=== PATIENT | male | born 1955 | race Caucasian/White ===

== ENCOUNTER 2019-07-11 03:34 | Outpatient (CLI) | payer OTHER, SELFPAY ==
[2019-07-11 10:51] LABS: Anion Gap 7.3 mmol/L (3-11); BUN 23 mg/dL (7-18); CO2 31.7 mmol/L (21.0-32.0); CREATININE 1.12 mg/dL (0.70-1.30); Calcium 8.9 mg/dL (8.5-10.1); Chloride 101 mmol/L (98-107); Glucose 97 mg/dL (70-100); Potassium 3.7 mmol/L (3.5-5.1); Sodium 140 mmol/L (136-145)
[2019-07-11 11:15] LABS: Calculated LDL 48 mg/dL; Cholesterol 106 mg/dL (50-200); HDL Cholesterol 29 mg/dL (40-60); Triglyceride 146 mg/dL (30-150)
== END 2019-07-11 03:54 ==
PROVIDERS: PCP Family Medicine; Visit Provider Family Medicine
DX: Z00.00 Encounter for general adult medical examination without abnormal findings (principal); E66.3 Overweight
CPT/HCPCS: 36415; 80048; 80061

== ENCOUNTER 2020-07-14 21:20 | Outpatient (REF) | payer OTHER, SELFPAY ==
[2020-07-14 21:47] LABS: Potassium 3.5 mmol/L (3.5-5.1)
== END 2020-07-14 21:40 ==
LOC: LBN 21:20
PROVIDERS: PCP Family Medicine; Visit Provider Family Medicine
DX: I10 Essential (primary) hypertension (principal)
CPT/HCPCS: 82565; 84132

== ENCOUNTER 2020-07-15 01:42 | Outpatient (CLI) | payer OTHER, SELFPAY ==
--- NOTE | 2020-07-15 11:07 | DI.RAD_ITS ---
EXAM: XR KNEE LT 3V AP,LAT,LATRICE CLINICAL HISTORY: knee pain endy,WEAKNESS BOTH LOWER EXTREMITIES,M25.561,[id number]. TECHNIQUE: 2D digital imaging was performed. COMPARISON: No exams were available for comparison FINDINGS: BONES: No acute fracture is present. No bony destructive lesion is seen. There is a lucency seen in the articular surface of the medial femoral condyle which may represent an osteochondral injury. The re is an enthesophyte at the superior patella. JOINTS: The knee is normally aligned. No joint effusion is seen. Drqa-co-doxnwund degenerative change s are seen in the left knee characterized by joint space narrowing and periarticular spurring. SOFT TISSUE: Normal. IMPRESSION: Degenerative changes of the left knee. DATA REPOSITORY: RADIATION DOSE DELIVERED:
--- NOTE | 2020-07-15 11:15 | DI.RAD_ITS ---
EXAM: XR KNEE RT 3V AP,LAT,LATRICE CLINICAL HISTORY: weakness in knees,BILAT KNEE PAIN,M25.561,M25.562. TECHNIQUE: 2D digital imaging was performed. COMPARISON: CR XR KNEE LT 3V AP,LAT,LATRICE from 07/15/2020 FINDINGS: BONES: No acute fracture is present. No bony destructive lesion is seen. JOINTS: The knee is normally aligned. No joint effusion is seen. Mild degenerative changes are seen i n the right knee characterized by joint space narrowing and periarticular spurring. The findings are most marked in the medial femoral tibial joint space. SOFT TISSUE: Normal. IMPRESSION: Degenerative changes of the right knee. DATA REPOSITORY: RADIATION DOSE DELIVERED:
== END 2020-07-15 02:02 ==
PROVIDERS: PCP Family Medicine; Visit Provider Family Medicine
DX: M17.0 Bilateral primary osteoarthritis of knee (principal)
CPT/HCPCS: 73562

== ENCOUNTER 2021-01-13 09:00 | Emergency (ER) | payer OTHER, SELFPAY ==
[2021-01-13] VITALS (41 sets, daily range): BP systolic 110–172; BP diastolic 59–87; PULSE 50–82; RESP 13–24; TEMP 36.6; O2SAT 95–98
--- NOTE | 2021-01-13 09:00 | RT.EKG_ITS ---
APPROVED REPORT Exam: Resting ECG Patient Location: E HR:68 bpm ECG Measurements Heart Rate 68 AXIS KS 151 P 34 QRSd 109 QRS -29 QT 411 T 16 QTc 436 Conclusion Sinus rhythm...normal P axis, V-rate 60- 99
--- NOTE | 2021-01-13 09:30 | RT.EKG_ITS ---
APPROVED REPORT Exam: Resting ECG Patient Location: E HR:51 bpm ECG Measurements Heart Rate 51 AXIS SC 145 P 19 QRSd 115 QRS -27 QT 457 T 2 QTc 423 Conclusion Sinus bradycardia...rate< 60 Nonspecific intraventricular conduction delay...QRSd >115mS, not LBBB/RBBB
--- NOTE | 2021-01-13 09:43 | ED.GENADUL_ITS ---
Discharge Plan Disposition Patient Disposition: HOME Condition: Good Discharge Details Clinical Impression: Rash, Chest pain Primary Care Provider: Christian Orr ED Provider: Lissa Astorga Home Meds and New Rx's Prescriptions: No Action losartan 100 mg tablet 100 mg PO DAILY Qty: 90 RF: 3 atorvastatin 40 mg tablet 40 mg PO DAILY Qty: 90 RF: 3 atenolol-chlorthalidone 100-25 mg tablet 1 tab PO DAILY Qty: 90 RF: 3 Discharge Instructions Instructions: Chest Pain (ED), Acute Rash (ED), Pityriasis rosea (ED) Additional Instructions: Please follow-up with your primary care physician tomorrow for reevaluation Return earlier should you have worsening or more persistent chest pain, norman rtness of breath, or with any new or progressing symptoms Your rash is likely self-limited and will resolve on, if it is itchy you may take Benadryl Discharge Data Discharge Date/Time-TO BE ENTERED AT DEPARTURE: 01/13/21 13:29 Medical Decision Making Patient appears quite well, he does not have chest pain during my evaluation and his EKG is reassuring, he had negative troponins and to negative EKGs for acute pathology during his stay 3 and I did consider his risk for coronary artery disease however given his presentation in conjunction with this rash have lower suspicion for cardiac etiology We talked about admission versus discharge home at this time patient feels comfortable discharge home and would like to follow-up with his primary care physician, will set up appointment for the acute outpatient reevaluation patient will return immediately should he have persistent or worsening chest pain, or with any new or concerning symptoms. Patient was fully alert, oriented, of decisional capacity. Evaluation today He has no pleuritic pain, hypoxia, or factors aside from a history of pulmonary embolism although this was considered Notable herald patch with papular rash surrounding Patient is asymptomatic eventually with a rash at this time Suspicion for angina. No evidence of ST elevation [place] on EKG Patient symptoms are nonexertional in nature currently have any exertional symptoms, he is not having nausea, diaphoresis, he does not smoke tobacco although he does have a strong family history of coronary artery disease and will need outpatient stress test EKG was reviewed by me and read by my attending physician, Dr. Marquez, please see his interpretation Patient is discharged home in stable condition, blood pressure is markedly elevated, instructed to have this rechecked by primary care physician in the outpatient setting Differential Diagnosis Differential Diagnosis: Pityriasis rosea, angina, ST elevation [place], dermatitis Medical Records Medical records reviewed: Yes I reviewed the patient's medical records. Lab Data Lab results reviewed: Yes I reviewed the patient's lab results. ECG Data Prior ECG tracings: available for review HPI 65-year-old gentleman with history of hyperlipidemia, hypertension, morbid o besity presents with report of generalized malaise since Monday followed by some intermittent chest pain starting Monday, past 3 days. He denies any exertional component. He denies nausea, vomiting, shortness of breath, diarrhea, blood in stool, sick contacts, travel, calf pain or swelling. He status post his first meningitis vaccine approximately 3 weeks ago. This morning he awoke and noticed a rash largely on his trunk that spread his extremities. He is asymptomatic at this rash. He denies any history of IV drug abuse or immunocompromise state. He denies any known sick contact. He has not attempted any [id number]-jma-[id number] medications.. Denies family history of early cardiac disease. General Date/Time Provider Initiated Documentation: 01/13/21 09:00 . Related Data Home Medications Medication Instructions Recorded Confirmed atenolol 100 mg-chlorthalidone 25 1 tab PO DAILY #90 tab 07/14/20 01/13/21 mg tablet atorvastatin 40 mg tablet 40 mg PO DAILY #90 tab 07/14/20 01/13/21 losartan 100 mg tablet 100 mg PO DAILY #90 tab 07/14/20 01/13/21 Previous Rx's Medication Instructions Recorded atenolol 100 mg-chlorthalidone 25 1 tab PO DAILY #90 tab 07/14/20 mg tablet atorvastatin 40 mg tablet 40 mg PO DAILY #90 tab 07/14/20 losartan 100 mg tablet 100 mg PO DAILY #90 tab 07/14/20 Allergies Allergy/AdvReac Type Severity Reaction Status Date / Time amlodipine AdvReac Intermediate SWELLING Verified 01/13/21 09:15 IN ANKLES lisinopril AdvReac Intermediate COUGH Verified 01/13/21 09:15 iv contrast Allergy Severe HIVES, Uncoded 01/13/21 09:15 ITCHING General Stated Complaint: Chest Pain MORA: 2 Review of Systems Narrative: Review of systems negative times 7 aside from where indicated in HPI [facility] Medical History (Updated 04/14/21 @ 13:10 by SABRINA Patino) Class 3 severe obesity due to excess calories with serious comorbidity and body mass index (BMI) of 40.0 to 44.9 in adult Essential hypertension Integumentary disorder Skin lesions Mixed hyperlipidemia Family History (Updated 07/15/20 @ 14:26 by Thuy Bolanos) Mother , 80 Hypertension Hyperlipidemia Ovarian cancer Father , 85 Diabetes Heart disease Hyperlipidemia Hypertension Sister Diabetes Hypertension Heart disease Hyperlipidemia Brother Diabetes Hypertension Heart disease Hyperlipidemia Brother Hyperlipidemia Hypertension Son Asthma Social History (Updated 07/15/20 @ 14:26 by Thuy Bolanos) Smoking/Tobacco Use Status: Former Tobacco Use Tobacco: How many years used: 10 Second Hand Exposure: Yes Smoking risk assessment performed?: Yes Alcohol Intake: current Alcohol Intake frequency: holidays/special occasions only Drug use: Never Substance use type: does not use Caregiver/Support person: No Household members: spouse Housing: house Communication Needs: None Do you need help understanding health information?: Never Pets and animals: No Sexually active: Yes Do you think of yourself as: straight/heterosexual What is your relationship status?: How often do you talk on the phone with friends or family?: once per week How often do you get together with friends or relatives?: three or more times per week Do you belong to any clubs or organized social groups?: no Panel score (0-1 are the most socially isolated patients): 2 What type of physical activity do you participate in: walking Duration: 15-30 minutes/day Frequency: 3-4 times per week Stephanie/Quaker: Moravian Special stephanie needs: No Seatbelt use: always Drive intox or ride w/intox special education bus driver: No Exam Const General: cooperative and comfortable Eyes Pupils: PERRL Neck Other: No meningismus Chest Chest: normal inspection of the chest Resp Effort & Inspection: normal respiratory effort Auscultation: clear to auscultation bilaterally Cardio Rate: regular rate Rhythm: regular rhythm GI Other: No abdominal tenderness appreciated Skin Other: Generalized papular rash that easily blanches, no petechiae or purpura Neuro General: patient alert and patient oriented x3 Extrem Other: No calf tenderness or swelling appreciated Psych Appearance: well kempt Course Vital Signs Vital signs: Vital Signs Temperature 36.6 C 01/13/21 09:09 Pulse 68 01/13/21 09:09 Respiratory Rate 21 01/13/21 09:09 Blood Pressure 172/84 H 01/13/21 09:09 Pulse Oximetry 98 01/13/21 09:09 Temperature 36.6 C 01/13/21 09:09 Temperature Source Skin 01/13/21 09:09 Pulse 68 01/13/21 09:09 Respiratory Rate 20 01/13/21 09:16 Respiratory Effort Non-Labored 01/13/21 09:16 Blood Pressure 172/84 H 01/13/21 09:09 Blood Pressure Position Supine 01/13/21 09:09 Pulse Oximetry 98 01/13/21 09:09 Oxygen Delivery Method Room Air 01/13/21 09:09 Oxygen Flow Rate 0 01/13/21 09:09 Pain Level 2 01/13/21 09:09
[2021-01-13 09:50] LABS: Abs Immature Grans 0.03 10^3/uL (0.0-0.06); Absolute Basophil Count 0.04 10^3/uL (0.0-0.2); Absolute Eosinophil Count 0.02 10^3/uL (0.0-0.7); Absolute Lymphocyte Count 1.52 10^3/uL (1.2-3.4); Absolute Monocyte Count 0.57 10^3/uL (0.1-0.8); Basophils % 0.5; Eosinophils % 0.2; HGB 16.5 g/dL (13.5-17.5); Immature Grans % 0.3; Lymphocytes % 17.7; MCH 31.4 pg (27.0-33.0); MCHC 35.1 % (32.0-36.0); MCV 89.4 fL (80-95); MPV 10.5 fL (8.0-11.0); Monocytes % 6.6; Neutrophils % 74.7; Nucleated RBC 0 %; Platelet Count 292 10^3/uL (130-400); RBC 5.26 10^6/uL (4.36-5.78); RDW 12.4 % (11.8-14.1); RDW-SD 40.8 fL; WBC 8.58 10^3/uL (4.4-10.8)
--- NOTE | 2021-01-13 09:56 | DI.RAD_ITS ---
EXAM: XR CHEST 2V PA LATERAL CLINICAL HISTORY: chest pain. TECHNIQUE: 2D digital imaging was performed. COMPARISON: No exams were available for comparison FINDINGS: Heart size is normal. The mediastinum is not widened. Lungs are clear. No infiltrates nor pleural effusions. Chest leads in place. Density upper right lung region appears to be coming off of the anterior aspec t of the 1st rib. This measures 12 x 10 millimeters. IMPRESSION: No acute pulmonary findings. DATA REPOSITORY: RADIATION DOSE DELIVERED:
[2021-01-13 09:57] LABS: ESR 26 mm//hr (0-20)
[2021-01-13 10:00] LABS: C-Reactive Protein 0.09 mg/dL (0.0-0.3)
[2021-01-13 10:09] LABS: ALT 37 U/L (16-63); AST 20 U/L (15-37); Alkaline Phosphatase 53 U/L (46-116); Anion Gap 8.6 mmol/L (3-11); BUN 14 mg/dL (7-18); Bilirubin, Total 0.9 mg/dL (0.2-1.0); CO2 29.4 mmol/L (21.0-32.0); CREATININE 1.2 mg/dL (0.70-1.30); Calcium 9.4 mg/dL (8.5-10.1); Chloride 101 mmol/L (98-107); Glucose 122 mg/dL (74-106); Lipase 98 U/L (73-393); Potassium 3.5 mmol/L (3.5-5.1); Sodium 139 mmol/L (136-145); Total Protein 8.2 g/dL (6.4-8.2); Troponin I < 0.05 ng/mL (<0.06)
[2021-01-13 13:11] LABS: Troponin I < 0.05 ng/mL (<0.06)
--- NOTE | 2021-01-13 14:36 | NUR.NOTE ---
Nursing Note: Faxed referral 01/13/21 MG
[2021-01-14 11:26] LABS: Lyme Ab w Rflx to Lyme Confirm Negative (Negative)
[2021-01-15 01:44] LABS: Anaplasma phagocytophilum Negative (Negative); B. miyamotoi PCR Negative (Negative); Babesia divergens/MO-1 Negative (Negative); Babesia duncani Negative (Negative); Babesia microti Negative (Negative); Ehrlichia chaffeensis Negative (Negative); Ehrlichia ewingii/canis Negative (Negative); Ehrlichia muris eauclairensis Negative (Negative)
== END 2021-01-13 13:29 | disposition home or self-care (01) ==
PROVIDERS: Emergency Provider Physician Assistant; PCP Family Medicine
DX: R21 Rash and other nonspecific skin eruption (principal); R07.89 Other chest pain; R53.81 Other malaise
CPT/HCPCS: 36415; 80053; 83690; 85652; 87798; 93005; 99284; 71046; 84484; 85025; 86140; 86618; 93010; 99285

== ENCOUNTER 2021-01-14 07:37 | Outpatient (CLI) | payer OTHER, SELFPAY ==
[2021-01-15 01:15] LABS: COVID-19 RT-PCR UVMMC Result Negative (Negative)
== END 2021-01-14 07:38 | disposition home or self-care (01) ==
PROVIDERS: PCP Family Medicine; Visit Provider Nurse Practitioner Family
DX: Z20.822 Contact with and (suspected) exposure to COVID-19 (principal)
CPT/HCPCS: U0003

== ENCOUNTER 2021-02-03 10:11 | Outpatient (CLI) | payer OTHER, SELFPAY ==
--- NOTE | 2021-02-03 10:00 | RT.EKG_ITS ---
APPROVED REPORT Exam: Resting ECG Reason for Exam: Chest pain Patient Location: O HR:60 bpm ECG Measurements Heart Rate 60 AXIS AK 138 P 36 QRSd 104 QRS -28 QT 454 T -12 QTc 454 Conclusion Sinus rhythm...normal P axis, V-rate 60- 99
== END 2021-02-03 10:12 | disposition home or self-care (01) ==
LOC: DI.CM 10:12
PROVIDERS: PCP Family Medicine; Visit Provider Family Medicine
DX: R07.9 Chest pain, unspecified (principal)
CPT/HCPCS: 93010

== ENCOUNTER 2021-07-20 08:48 | Outpatient (CLI) | payer OTHER, SELFPAY ==
[2021-07-20 12:39] LABS: Anion Gap 8.9 mmol/L (3-11); BUN 12 mg/dL (7-18); CO2 30.1 mmol/L (21.0-32.0); CREATININE 1.1 mg/dL (0.70-1.30); Calcium 8.9 mg/dL (8.5-10.1); Calculated LDL 50 mg/dL (<100); Chloride 103 mmol/L (98-107); Cholesterol 111 mg/dL (<200); Glucose 110 mg/dL (74-106); HDL Cholesterol 33 mg/dL (40-60); Potassium 3.8 mmol/L (3.5-5.1); Sodium 142 mmol/L (136-145); Triglyceride 141 mg/dL (<150)
[2021-07-20 12:58] LABS: Hemoglobin A1C 5.7 % (<5.7)
== END 2021-07-20 08:49 | disposition home or self-care (01) ==
LOC: LOS 08:49
PROVIDERS: PCP Family Medicine; Visit Provider Family Medicine
DX: E78.5 Hyperlipidemia, unspecified (principal); E87.1 Hypo-osmolality and hyponatremia; R73.9 Hyperglycemia, unspecified
CPT/HCPCS: 36415; 80048; 80061; 83036

== ENCOUNTER 2022-07-21 08:53 | Outpatient (CLI) | payer OTHER, SELFPAY ==
[2022-07-21 12:49] LABS: Hemoglobin A1C 5.9 % (<5.7)
[2022-07-21 12:51] LABS: CREATININE 1.2 mg/dL (0.70-1.30); Calculated LDL 57 mg/dL (<100); Cholesterol 114 mg/dL (<200); Estimated GFR 67.53 (mL/min/1.73m2); HDL Cholesterol 33 mg/dL (40-60); Potassium 3.5 mmol/L (3.5-5.1); Triglyceride 123 mg/dL (<150)
== END 2022-07-21 08:54 | disposition home or self-care (01) ==
LOC: LOS 08:53
PROVIDERS: PCP Family Medicine; Referring Provider Family Medicine; Visit Provider Family Medicine
DX: I10 Essential (primary) hypertension (principal); R73.9 Hyperglycemia, unspecified
CPT/HCPCS: 36415; 80061; 82565; 83036; 84132

== ENCOUNTER 2023-07-25 09:55 | Outpatient (CLI) | payer MEDICARE, SELFPAY ==
[2023-07-25 12:49] LABS: HCT 45.3 % (40.0-50.0); HGB 15.6 g/dL (13.5-17.5); MCH 31.3 pg (27.0-33.0); MCHC 34.4 % (32.0-36.0); MCV 91 fL (80-95); MPV 11.2 fL (8.0-11.0); Platelet Count 226 10^3/uL (130-400); RBC 4.98 10^6/uL (4.36-5.78); RDW 12.9 % (11.8-14.1); RDW-SD 42.6 fL; WBC 7.08 10^3/uL (4.4-10.8)
[2023-07-25 13:07] LABS: ALT 39 U/L (16-63); AST 19 U/L (15-37); Albumin 3.9 g/dL (3.4-5.0); Alkaline Phosphatase 50 U/L (46-116); Anion Gap 9.8 mmol/L (3-11); BUN 11 mg/dL (7-18); CO2 29.2 mmol/L (21.0-32.0); CREATININE 1.1 mg/dL (0.70-1.30); Calcium 9.6 mg/dL (8.5-10.1); Calculated LDL 27 mg/dL (<100); Chloride 103 mmol/L (98-107); Cholesterol 75 mg/dL (<200); Glucose 110 mg/dL (74-106); HDL Cholesterol 32 mg/dL (40-60); Potassium 3.5 mmol/L (3.5-5.1); Sodium 142 mmol/L (136-145); Total Protein 7.9 g/dL (6.4-8.2); Triglyceride 81 mg/dL (<150)
[2023-07-25 23:01] LABS: PSA, Screening 1.3 ng/mL (<=4.5)
== END 2023-07-25 09:56 | disposition home or self-care (01) ==
LOC: LOS 09:56
PROVIDERS: PCP Family Medicine; Referring Provider Family Medicine; Visit Provider Family Medicine
DX: R10.9 Unspecified abdominal pain (principal); E78.5 Hyperlipidemia, unspecified; Z12.5 Encounter for screening for malignant neoplasm of prostate; R53.83 Other fatigue
CPT/HCPCS: 36415; 80053; 80061; 84153; 85027

== ENCOUNTER 2024-07-30 09:43 | Outpatient (CLI) | payer MEDICARE, SELFPAY ==
[2024-07-30 12:25] LABS: BUN 19 mg/dL (7-18); CREATININE 1.1 mg/dL (0.70-1.30); Calcium 9.2 mg/dL (8.5-10.1); Chloride 105 mmol/L (98-107); Estimated GFR 74.04 (mL/min/1.73m2); Glucose 108 mg/dL (74-106); Potassium 3.6 mmol/L (3.5-5.1); Sodium 143 mmol/L (136-145)
[2024-07-30 14:03] LABS: Hemoglobin A1C 5.6 % (<5.7)
[2024-07-30 19:53] LABS: Hepatitis C Ab w Rflx HCV PCR Negative (Negative)
== END 2024-07-30 09:44 | disposition home or self-care (01) ==
PROVIDERS: PCP Family Medicine; Referring Provider Family Medicine; Visit Provider Family Medicine
DX: E87.1 Hypo-osmolality and hyponatremia (principal); Z11.59 Encounter for screening for other viral diseases; E11.51 Type 2 diabetes mellitus with diabetic peripheral angiopathy without gangrene; I70.209 Unspecified atherosclerosis of native arteries of extremities, unspecified extremity; Z23 Encounter for immunization; D36.9 Benign neoplasm, unspecified site
CPT/HCPCS: 36415; 80048; 86803; 83036

== ENCOUNTER → 2024-10-17 08:43 | Outpatient (BNVA) | payer MEDICARE, SELFPAY | PROVIDERS: PCP Family Medicine; Referring Provider Family Medicine; Visit Provider Physical Therapy Assistant | DX: Z12.11 Encounter for screening for malignant neoplasm of colon (principal); Z86.0100 Personal history of colon polyps, unspecified; I10 Essential (primary) hypertension ==

== ENCOUNTER 2025-09-18 08:16 | Outpatient (CLI) | payer MEDICARE, SELFPAY ==
[2025-09-18 15:27] LABS: ALT 33 U/L (10-49); AST 21 U/L (<34); Albumin 4.3 g/dL (3.2-5.0); Alkaline Phosphatase 51 U/L (46-116); Anion Gap 10.5 mmol/L (3-11); BUN 14 mg/dL (9-23); Bilirubin, Total 0.9 mg/dL (0.2-1.2); CO2 28.5 mmol/L (20.0-31.0); Calcium 9.2 mg/dL (8.3-10.6); Chloride 104 mmol/L (98-107); Cholesterol 110 mg/dL (<200); Glucose 98 mg/dL (74-106); HDL Cholesterol 37 mg/dL (>or=40); Potassium 3.5 mmol/L (3.5-5.1); Sodium 143 mmol/L (136-145); Total Protein 7.5 g/dL (5.7-8.2)
[2025-09-18 15:32] LABS: Hemoglobin A1C 5.8 % (<5.7)
[2025-09-18 23:03] LABS: PSA, Screening 1.4 ng/mL (<=4.5)
== END 2025-09-18 08:17 | disposition home or self-care (01) ==
LOC: LOS 08:16
PROVIDERS: PCP Family Medicine; Visit Provider Nurse Practitioner Family
DX: R73.01 Impaired fasting glucose (principal); I10 Essential (primary) hypertension; E78.2 Mixed hyperlipidemia; L98.9 Disorder of the skin and subcutaneous tissue, unspecified; Z12.5 Encounter for screening for malignant neoplasm of prostate
CPT/HCPCS: 36415; 80053; 80061; 84153; 83036